=== PATIENT | female | born 1990 | race Two or more races ===

== ENCOUNTER → 2022-03-18 | Outpatient (CLI) | payer MEDICAID | END | disposition home or self-care (01) | LOC: LAB 10:17 | PROVIDERS: ATTEND Obstetrics & Gynecology | DX: Z34.80 Encounter for supervision of other normal pregnancy, unspecified trimester (principal); Z3A.00 Weeks of gestation of pregnancy not specified | CPT/HCPCS: 36415; 84702 ==

== ENCOUNTER → 2022-03-25 | Outpatient (CLI) | payer MEDICAID | END | disposition home or self-care (01) | LOC: LAB 09:48 | PROVIDERS: ATTEND Obstetrics & Gynecology | DX: O03.9 Complete or unspecified spontaneous abortion without complication (principal); Z3A.00 Weeks of gestation of pregnancy not specified | CPT/HCPCS: 36415; 84702 ==

== ENCOUNTER → 2023-06-04 | Outpatient (CLI) | payer MEDICAID ==
[2023-06-04 11:02] LABS: Basophils # (auto) 0 10 ^3/uL (0-0.2); Basophils % (auto) 0.5 % (0.0-2.0); Eosinophils # (auto) 0 10 ^3/uL (0-0.8); Eosinophils % (auto) 0.5 % (0.0-7.0); Hematocrit 39.9 % (36.0-46.0); Hemoglobin 13.6 g/dL (12.2-16.2); Lymphocytes # (auto) 2.2 10 ^3/uL (0.4-5.4); Lymphocytes % (auto) 25.5 % (10.0-50.0); Mean Corpuscular Hemoglobin 31.3 pg (28.0-32.0); Monocytes # (auto) 0.4 10 ^3/uL (0-1.3); Monocytes % (auto) 4.1 % (0.0-12.0); Neutrophils # (auto) 5.9 10 ^3/uL (1.6-8.6); Neutrophils % (auto) 69.4 % (37.0-80.0); Red Blood Cells 4.34 10^6/uL (4.0-5.20); Red Cell Distribution Width 12.5 % (11.8-14.3); White Blood Cell 8.5 10^3/uL (4.4-10.8)
[2023-06-04 11:23] LABS: Amphetamine Screen, Urine Neg (NEGATIVE)
[2023-06-04 11:25] LABS: Barbiturate Scree,Urine Neg (NEGATIVE); Benzodiazephine Screen, Urine Neg (NEGATIVE); Cocaine Screen, Urine Neg (NEGATIVE); Opiate Scree,Urine Neg (NEGATIVE); Phencyclidine Screen, Urine Neg (NEGATIVE)
[2023-06-04 11:26] LABS: Cannabinoid Screen, Urine Neg (NEGATIVE)
[2023-06-05 07:06] LABS: RPR Non Reactive (Non Reactive)
[2023-06-05 11:07] LABS: Varicella Zoster IgG Antibody 403 index (Immune >165)
[2023-06-07 04:07] LABS: QuantiFERON-TB Gold Plus Negative (Negative)
== END | disposition home or self-care (01) ==
LOC: LAB 10:15
PROVIDERS: ATTEND Obstetrics & Gynecology
DX: Z34.80 Encounter for supervision of other normal pregnancy, unspecified trimester (principal); Z36.0 Encounter for antenatal screening for chromosomal anomalies; N39.0 Urinary tract infection, site not specified; Z31.430 Encounter of female for testing for genetic disease carrier status for procreative management; Z3A.00 Weeks of gestation of pregnancy not specified
CPT/HCPCS: 36415; 80307; 83036; 84702; 85025; 86592; 86703; 86762; 86787; 86850; 86900; 86901; 87086; 87088; 87186; 87340

== ENCOUNTER → 2023-08-20 | Outpatient (CLI) | payer MEDICAID ==
[2023-08-22 09:07] LABS: Chlamydia Trachomatis, NAA Negative (Negative); Neisseria gonorrhoeae, NAA Negative (Negative)
== END | disposition home or self-care (01) ==
LOC: LAB 14:50
PROVIDERS: ATTEND Obstetrics & Gynecology
DX: N39.0 Urinary tract infection, site not specified (principal)
CPT/HCPCS: 87086

== ENCOUNTER → 2023-10-21 | Outpatient (CLI) | payer MEDICAID ==
[2023-10-21 07:48] LABS: Basophils # (auto) 0.1 10 ^3/uL (0-0.2); Basophils % (auto) 0.6 % (0.0-2.0); Eosinophils # (auto) 0.2 10 ^3/uL (0-0.8); Eosinophils % (auto) 1.4 % (0.0-7.0); Hematocrit 33.9 % (36.0-46.0); Hemoglobin 11.7 g/dL (12.2-16.2); Lymphocytes # (auto) 2.1 10 ^3/uL (0.4-5.4); Lymphocytes % (auto) 17.9 % (10.0-50.0); Mean Corpuscular Hemoglobin 31.4 pg (28.0-32.0); Mean Corpuscular Hgb Conc. 34.4 g/dL (32.0-36.0); Mean Corpuscular Volume 91.3 fL (80.0-100.0); Monocytes # (auto) 0.6 10 ^3/uL (0-1.3); Monocytes % (auto) 5.4 % (0.0-12.0); Neutrophils # (auto) 8.8 10 ^3/uL (1.6-8.6); Neutrophils % (auto) 74.7 % (37.0-80.0); Nucleated Red Blood Cells % 0.2 %; Red Blood Cells 3.72 10^6/uL (4.0-5.20); Red Cell Distribution Width 13.1 % (11.8-14.3); White Blood Cell 11.8 10^3/uL (4.4-10.8)
[2023-10-23 10:06] LABS: Chlamydia Trachomatis, NAA Negative (Negative); Neisseria gonorrhoeae, NAA Negative (Negative)
== END | disposition home or self-care (01) ==
LOC: LAB 07:26
PROVIDERS: ATTEND Obstetrics & Gynecology
DX: Z34.80 Encounter for supervision of other normal pregnancy, unspecified trimester (principal)
CPT/HCPCS: 36415; 82951; 83036; 85025

== ENCOUNTER 2023-12-16 09:38 | Observation (INO) | payer MEDICAID ==
[~2023-12-16] VITALS: Ht 162.6 cm; Wt 83.9 kg
[2023-12-16] MEDS ORDERED: PREN-96 PO (09:44)
[2023-12-16] MEDS ORDERED: TERBUTALINE SULFATE 1 MG/ML 1ML VIAL SC SCH (11:15)
== END 2023-12-16 12:10 | disposition home or self-care (01) ==
LOC: LDRP 09:38
PROVIDERS: ADMIT Obstetrics & Gynecology; ATTEND Obstetrics & Gynecology
DX: O24.419 Gestational diabetes mellitus in pregnancy, unspecified control (principal); Z3A.34 34 weeks gestation of pregnancy
CPT/HCPCS: 59025; 76818; 81002; 82948; 82962; 94760; 96372; G0378; J3105

== ENCOUNTER 2023-12-19 11:55 | Observation (INO) | payer MEDICAID ==
[~2023-12-19 11:55] MED LIST: PREN-96 PO
== END 2023-12-19 13:16 | disposition home or self-care (01) ==
LOC: LDRP 11:55
PROVIDERS: ADMIT Obstetrics & Gynecology; ATTEND Obstetrics & Gynecology
DX: O24.419 Gestational diabetes mellitus in pregnancy, unspecified control (principal); O62.9 Abnormality of forces of labor, unspecified; Z3A.35 35 weeks gestation of pregnancy
CPT/HCPCS: 76818; 82962; G0378; 59025; 81002; 82948; 94760

== ENCOUNTER 2023-12-22 09:50 | Observation (INO) | payer MEDICAID ==
[~2023-12-22] VITALS: Ht 160 cm; Wt 87.1 kg
[2023-12-22] MEDS ORDERED: NIFEdipine ER 30 MG TAB PO ONE (12:30)
[2023-12-22] MEDS ORDERED: NIFE10CA52 PO (12:53)
[2023-12-22] MEDS: TERBUTALINE SULFATE 1 MG/ML 1ML VIAL SC SCH (12:56)
[2023-12-22] MEDS: NIFEdipine 10 MG CAP PO ONE (13:04)
== END 2023-12-22 13:45 | disposition home or self-care (01) ==
LOC: UNDOADMOB 09:50 → LDRP 09:50 → UNDODISOB 13:45
PROVIDERS: ADMIT Obstetrics & Gynecology; ATTEND Obstetrics & Gynecology
DX: O24.419 Gestational diabetes mellitus in pregnancy, unspecified control (principal); O60.03 Preterm labor without delivery, third trimester; Z3A.35 35 weeks gestation of pregnancy
CPT/HCPCS: 59025; 76818; 81002; 82948; 82962; 94760; 96372; G0378; J3105; 96365

== ENCOUNTER 2023-12-25 08:06 | Observation (INO) | payer MEDICAID ==
[~2023-12-25 08:06] MED LIST changes: +NIFE10CA52 PO
== END 2023-12-25 09:15 | disposition home or self-care (01) ==
LOC: UNDOADMOB 08:06 → LDRP 08:06 → UNDODISOB 09:15
PROVIDERS: ADMIT Obstetrics & Gynecology; ATTEND Obstetrics & Gynecology
DX: O24.419 Gestational diabetes mellitus in pregnancy, unspecified control (principal); O62.9 Abnormality of forces of labor, unspecified; Z3A.35 35 weeks gestation of pregnancy
CPT/HCPCS: 59025; 76818; 81002; 82948; 82962; 94760; G0378

== ENCOUNTER 2023-12-29 08:05 | Observation (INO) | payer MEDICAID ==
[2023-12-29] MEDS ORDERED: METF-370 PO (10:02)
== END 2023-12-29 10:22 | disposition home or self-care (01) ==
LOC: LDRP 08:05 → UNDOADMOB 08:05 → LDRP 08:15 → UNDODISOB 10:22
PROVIDERS: ADMIT Obstetrics & Gynecology; ATTEND Obstetrics & Gynecology
DX: O24.419 Gestational diabetes mellitus in pregnancy, unspecified control (principal); Z3A.36 36 weeks gestation of pregnancy
CPT/HCPCS: 59025; 76818; 81002; 82948; 82962; 94760; G0378

== ENCOUNTER 2024-01-01 08:10 | Observation (INO) | payer MEDICAID ==
[~2024-01-01 08:10] MED LIST changes: +METF-370 PO
== END 2024-01-01 10:33 | disposition home or self-care (01) ==
LOC: LDRP 08:10 → UNDOADMOB 08:10 → LDRP 08:12 → UNDODISOB 10:33
PROVIDERS: ADMIT Obstetrics & Gynecology; ATTEND Obstetrics & Gynecology
DX: O24.429 Gestational diabetes mellitus in childbirth, unspecified control (principal); O69.81X0 Labor and delivery complicated by cord around neck, without compression, not applicable or unspecified; Z3A.36 36 weeks gestation of pregnancy; Z79.899 Other long term (current) drug therapy
CPT/HCPCS: 59025; 76818; 81002; 82948; 94760; G0378

== ENCOUNTER 2024-01-04 08:17 | Observation (INO) | payer MEDICAID | END 2024-01-04 09:52 | disposition home or self-care (01) | LOC: LDRP 08:17 | PROVIDERS: ADMIT Obstetrics & Gynecology; ATTEND Obstetrics & Gynecology | DX: O24.419 Gestational diabetes mellitus in pregnancy, unspecified control (principal); O69.81X0 Labor and delivery complicated by cord around neck, without compression, not applicable or unspecified; Z3A.37 37 weeks gestation of pregnancy; Z79.899 Other long term (current) drug therapy | CPT/HCPCS: 59025; 76818; 81002; 82948; 82962; 94760; G0378 ==

== ENCOUNTER 2024-01-07 08:29 | Observation (INO) | payer MEDICAID | END 2024-01-07 09:42 | disposition home or self-care (01) | LOC: UNDOADMOB 08:29 → LDRP 08:29 | PROVIDERS: ADMIT Obstetrics & Gynecology; ATTEND Obstetrics & Gynecology | DX: O24.419 Gestational diabetes mellitus in pregnancy, unspecified control (principal); Z3A.37 37 weeks gestation of pregnancy | CPT/HCPCS: 59025; 76818; 81002; 82948; 82962; 94760; G0378 ==

== ENCOUNTER 2024-01-11 11:10 | Observation (INO) | payer MEDICAID | END 2024-01-11 12:35 | disposition home or self-care (01) | LOC: LDRP 11:10 → UNDOADMOB 11:10 → LDRP 11:17 | PROVIDERS: ADMIT Obstetrics & Gynecology; ATTEND Obstetrics & Gynecology | DX: O24.419 Gestational diabetes mellitus in pregnancy, unspecified control (principal); Z3A.38 38 weeks gestation of pregnancy; Z79.899 Other long term (current) drug therapy | CPT/HCPCS: 59025; 76818; 81002; 82948; 82962; G0378 ==

== ENCOUNTER 2024-01-14 08:58 | Observation (INO) | payer MEDICAID | END 2024-01-14 11:32 | disposition home or self-care (01) | LOC: LDRP 08:58 → UNDOADMOB 08:58 → LDRP 09:34 → UNDODISOB 11:32 | PROVIDERS: ADMIT Obstetrics & Gynecology; ATTEND Obstetrics & Gynecology | DX: O24.419 Gestational diabetes mellitus in pregnancy, unspecified control (principal); Z3A.38 38 weeks gestation of pregnancy | CPT/HCPCS: 59025; 76818; 81002; 82948; 82962; 94760; G0378 ==

== ENCOUNTER 2024-01-16 07:05 | Inpatient (IN) | payer MEDICAID ==
[~2024-01-16] VITALS: Ht 160 cm; Wt 83.0 kg
[2024-01-16] MEDS ORDERED: LIDOCAINE 2%HCL (LOCAL ANESTH.) INJ 20ML MDV IJ PRN (07:30)
[2024-01-16 07:58] LABS: Basophils # (auto) 0 10 ^3/uL (0-0.2); Basophils % (auto) 0.5 % (0.0-2.0); Eosinophils # (auto) 0.1 10 ^3/uL (0-0.8); Eosinophils % (auto) 0.6 % (0.0-7.0); Hematocrit 36.1 % (36.0-46.0); Hemoglobin 12.8 g/dL (12.2-16.2); Lymphocytes # (auto) 2.4 10 ^3/uL (0.4-5.4); Lymphocytes % (auto) 27.4 % (10.0-50.0); Mean Corpuscular Hemoglobin 33.1 pg (28.0-32.0); Mean Corpuscular Hgb Conc. 35.4 g/dL (32.0-36.0); Mean Corpuscular Volume 93.6 fL (80.0-100.0); Monocytes # (auto) 0.6 10 ^3/uL (0-1.3); Monocytes % (auto) 6.5 % (0.0-12.0); Neutrophils # (auto) 5.8 10 ^3/uL (1.6-8.6); Platelet Count (auto) 219 10^3/uL (140-450); Red Blood Cells 3.86 10^6/uL (4.0-5.20); Red Cell Distribution Width 13.7 % (11.8-14.3); White Blood Cell 8.9 10^3/uL (4.4-10.8)
[2024-01-16 08:13] LABS: Albumin 4.1 g/dL (3.2-4.8); Alkaline Phosphatase 109 U/L (46-116); Anion Gap 11 (5-15); Aspartate Aminotransferase 15 U/L (13-40); Blood Urea Nitrogen 12 mg/dL (9-23); Calcium 9.2 mg/dL (8.7-10.4); Carbon Dioxide 19 mmol/L (20-31); Chloride 108 mmol/L (98-107); Glucose 85 mg/dL (74-106); Potassium 3.7 mmol/L (3.5-5.1); Sodium 138 mmol/L (136-145)
[2024-01-16 08:14] LABS: Alanine Aminotransferase < 9 U/L (7-40); Bilirubin, Total 0.4 mg/dL (0.2-1.0); Total Protein 6.9 g/dL (5.7-8.2)
[2024-01-16 08:22] LABS: INR 0.93 (0.9-1.15); Partial Thromboplastin Time 24.6 SEC (24.5-34.5); Prothrombin Time 9.9 sec (9.3-11.8)
[2024-01-16] MEDS: WITCH HAZEL-GLYCERIN PAD TOP PRN (08:57)
[2024-01-16] MEDS: DERMOPLAST 60ML BOTTLE TOP PRN (08:57)
[2024-01-16] MEDS: miSOPROStol 50 MCG per PRE-CUT 1/2 TAB PO PRN (08:57)
[2024-01-16] MEDS: PHISODERM TOP SOLN 240ML BTL TOP PRN (08:57)
[2024-01-16 09:20] LABS: Urine Bacteria FEW /hpf (None Seen); Urine Blood Negative /uL (Negative); Urine Clarity Turbid (Clear); Urine Color Light-Yellow (Yellow); Urine Protein, UAD Negative (Negative); Urine Specific Gravity 1.021 (1.001-1.035); Urine Urobilinogen Normal (Negative); Urine WBC 2 /hpf (0 - 5)
[2024-01-16 09:33] LABS: Amphetamine Screen, Urine Neg (NEGATIVE); Barbiturate Scree,Urine Neg (NEGATIVE); Benzodiazephine Screen, Urine Neg (NEGATIVE); Cannabinoid Screen, Urine Neg (NEGATIVE); Cocaine Screen, Urine Neg (NEGATIVE); Opiate Scree,Urine Neg (NEGATIVE); Phencyclidine Screen, Urine Neg (NEGATIVE)
--- NOTE | 2024-01-16 11:56 | DVHHP2 ---
OB CC & HPI Date Date of Admission: Jan 16, 2024 Patient Identification: : 6 Para: 3 EDC: Dec 24, 2023 EGA: 39wks Chief Complaints: Reason for admission: active labor, induction of labor Indication for : other (gdm) Admission Nurse Assessment Rev: No History of Present Complaints pt is admitted for iol for gdma2,no rom or vag bleedingf Past Medical History Cardiac: No pertinent Hx Pulmonary: No pertinent Hx Central Nervous System: No pertinent Hx GI: No pertinent Hx Hemotology/Oncology: No pertinent Hx Hepatobiliary: No pertinent Hx Psychiatric: No pertinent Hx Musculoskeletal: No pertinent Hx Rheumotologic: No pertinent Hx Infectious Disease: No peritnent Hx ENT: No pertinent Hx Renal/: No pertinent Hx Endocrine: No pertinent Hx Dermatology: No pertinent Hx Past Surgical History: No pertinent Hx OB History OB History Care: Good Care Ultrasounds: Normal mid trimester US Obstetrical Complications: Gestational Diabetes Medical Complications: None Allergies: Coded Allergies: NO KNOWN ALLERGIES (Unverified , 12/16/23) Home Meds Active Scripts Nifedipine (PROCARDIA CAPSULE) 10 Mg Cp, 10 MG PO Q6HR for 4 Days, #30 CAP Prov:TRUDY TUCKER CNNicolas 12/22/23 Reported Medications Metformin Hydrochloride (Metformin Hcl) 500 Mg Tab, 500 MG PO DAILY for 30 Days, MG 12/29/23 Vit W/ Ferrous Fumara ( One Daily) Daily Tab, 1 TAB PO DAILY, #90 TAB 3 Refills 12/16/23 Current Medications Current Medications Medications (Trade) Dose Ordered Sig/Christina Route PRN Reason Start Time Stop Time Status Last Admin Lactated Ringer's 1,000 ml @ 125 mls/hr Q8H IV 01/16/24 07:30 Rahul Salazar (Tucks) 1 pad PRN PRN TOP PERINEAL AREA DISCOMFORT 01/16/24 07:30 01/16/24 08:57 Sodium Lauryl Sulfate (Phisoderm) 240 ml PRN PRN TOP PERINEAL AREA DISCOMFORT 01/16/24 07:30 01/16/24 08:57 Benzocaine (Dermoplast) 1 applic PRN PRN TOP PERINEAL AREA DISCOMFORT 01/16/24 07:30 01/16/24 08:57 Misoprostol (Cytotec) 50 mcg Q4HPRN PRN PO CERVICAL RIPENING 01/16/24 07:30 01/16/24 08:57 Lidocaine HCl (Xylocaine) 20 ml ONCE PRN IJ PERINEAL AREA DISCOMFORT 01/16/24 07:30 Family & Social History Family/Social History Blood Type: Unknown Rubella: unknown RPR/VDRL: Negative GBS Status: Unknown HBsAG: Negative Review of Systems Constitutional: No symptom reported Ears, Nose, & Throat: No symptom reported Eyes: No symptom reported Pulmonary/Respiratory: No symptom reported Cardiovascular: No symptom reported Gastrointestinal: No symptom reported Genitourinary: No symptom reported Musculoskeletal: No symptom reported Skin: No symptom reported Psychiatric: No symptom reported Endocrine: No symptom reported Hemotologic/Lymphatic: No symptom reported OB Admission Exam Physical Exam HEENT: TMs Normal, Fontanelles Normal, Nasal Mucosa Normal, Eyes non-injected, Oropharynx Normal, PERRLA, Moist Membranes, EOMI Heart: Rhythm Normal Lungs: Clear Abdomen: Non tender Extremities: Normal Reflexes: Normal Cervical Dilatation: 1cm Effacement: 75% Station: -2 Membranes: Intact Heart Rate: 130's Accelerations: Accelerations Present Decelerations: No Decelerations Short Term Variability: Present Skilled Nursing Variability: Average (6-25) Contractions on Admission: >10 Minutes Apart Intensity: Mild OB Plan Plan Admitting Diagnosis: Induction of Labor for gdma2 Induction Methd: Misoprostol protocol Other Plan: informed consent obtained ROMINA BARONE DO Jan 16, 2024 11:56
[2024-01-16] MEDS: LACTATED RINGER'S 1,000 ML IV SCH (17:23)
--- NOTE | 2024-01-16 18:26 | DVHPN2 ---
Chief Complaints Patient reports: No new complaints Nursing reports: No new complaints Objective Medications Current Medications Medications (Trade) Dose Ordered Sig/Christina Route PRN Reason Start Time Stop Time Status Last Admin Benzocaine (Dermoplast) 1 applic PRN PRN TOP PERINEAL AREA DISCOMFORT 01/16/24 07:30 01/16/24 08:57 Lactated Ringer's 1,000 ml @ 125 mls/hr Q8H IV 01/16/24 07:30 01/16/24 17:23 Lidocaine HCl (Xylocaine) 20 ml ONCE PRN IJ PERINEAL AREA DISCOMFORT 01/16/24 07:30 Misoprostol (Cytotec) 50 mcg Q4HPRN PRN PO CERVICAL RIPENING 01/16/24 07:30 01/16/24 17:23 Sodium Lauryl Sulfate (Phisoderm) 240 ml PRN PRN TOP PERINEAL AREA DISCOMFORT 01/16/24 07:30 01/16/24 08:57 Witch Marie (Tucks) 1 pad PRN PRN TOP PERINEAL AREA DISCOMFORT 01/16/24 07:30 01/16/24 08:57 Others VE -1CM/50/-2 Studies Laboratory Tests 01/16/24 07:43 Test 01/16/24 07:43 Range/Units Serum Glucose 85 74-106 mg/dL Ass/Plan Assessment IOL FOR GDM Plan REC 2 CYTOTEROMINA NAVA DO Jan 16, 2024 18:26
--- NOTE | 2024-01-16 22:08 | DVHPN2 ---
CNM Labor Progress Note Date and Time Seen Date Seen: Jan 16, 2024 Time Seen: 21:15 Subjective Patient reports: No new complaints Monitoring Method Monitoring Method: External Heart Rate Heart Rate Baseline: 135 Heart Rate Variability: Moderate Presence of FHR Accelerations: Yes Presence of FHR Decelerations: No Changes in Trends of Patterns: No Are all 5 Components of the FH: Yes Contractions Contractions Frequency: Other (1-4min) Duration of Contraction: 80 Contractions Intensity: Mild Contractions Resting Tone: Relaxed Membranes Membranes: Intact Vaginal Exam Vag Exam Deferred: No Vaginal Exam Dilation: 3 Vaginal Exam Effacement: 50 Vaginal Exam Station: -2 Vaginal Exam Presentation: VTX Vaginal Exam Show: Small Medications Medication - Epidural: No Medication - Other Misoprostol Lab Results Lab Results Current Medications Medications (Trade) Dose Ordered Sig/Christina Start Time Stop Time Status Last Admin Dose Admin Lactated Ringer's 1,000 ml @ 125 mls/hr Q8H 01/16/24 07:30 01/16/24 17:23 125 MLS/HR Rahul Salazar (Tucks) 1 pad PRN PRN 01/16/24 07:30 01/16/24 08:57 1 PAD Sodium Lauryl Sulfate (Phisoderm) 240 ml PRN PRN 01/16/24 07:30 01/16/24 08:57 240 ML Benzocaine (Dermoplast) 1 applic PRN PRN 01/16/24 07:30 01/16/24 08:57 1 APPLIC Misoprostol (Cytotec) 50 mcg Q4HPRN PRN 01/16/24 07:30 01/16/24 17:23 50 MCG Lidocaine HCl (Xylocaine) 20 ml ONCE PRN 01/16/24 07:30 Oxytocin 500 ml @ 999 mls/hr Q31M ONCE 01/16/24 07:30 01/16/24 08:00 DC Oxytocin 500 ml @ 125 mls/hr Q4H ONCE 01/16/24 08:00 01/16/24 11:59 DC Laboratory Tests Test 01/16/24 18:28 01/16/24 08:30 01/16/24 07:43 Range/Units POC Glucose 89 70-106 mg/dl Urine Color Light-yellow Yellow Urine Clarity Turbid H Clear Urine pH 6.0 5.0-9.0 Urine Specific [place] 1.021 1.001-1.035 Urine Protein Negative Negative Urine Ketones Negative Negative Urine Blood Negative Negative /uL Urine Nitrite Negative Negative Urine Bilirubin Negative Negative Urine Urobilinogen Normal Negative mg/dL Urine Leukocyte Esterase Negative Negative /uL Urine RBC 1 0 - 4 /hpf Urine WBC 2 0 - 5 /hpf Urine Squamous Epithelial Cells Mod <5 /hpf Urine Calcium Oxalate Crystals Few None Seen Urine Bacteria Few H None Seen /hpf Urine Glucose Normal Normal mg/dL Urine Opiates Screen Neg NEGATIVE Urine Fentanyl Screen Neg NEGATIVE Urine Barbiturates Screen Neg NEGATIVE Urine Phencyclidine Screen Neg NEGATIVE Urine Amphetamines Screen Neg NEGATIVE Urine Benzodiazepines Screen Neg NEGATIVE Urine Cocaine Screen Neg NEGATIVE Urine Cannabinoids Screen Neg NEGATIVE White Blood Count 8.9 4.4-10.8 10^3/uL Red Blood Count 3.86 L 4.0-5.20 10^6/uL Hemoglobin 12.8 12.2-16.2 g/dL Hematocrit 36.1 36.0-46.0 % Mean Corpuscular Volume 93.6 80.0-100.0 fL Mean Corpuscular Hemoglobin 33.1 H 28.0-32.0 pg Mean Corpuscular Hemoglobin Concent 35.4 32.0-36.0 g/dL Red Cell Distribution Width 13.7 11.8-14.3 % Platelet Count 219 140-450 10^3/uL Mean Platelet Volume 8.3 6.9-10.8 fL Neutrophils (%) (Auto) 65.0 37.0-80.0 % Lymphocytes (%) (Auto) 27.4 10.0-50.0 % Monocytes (%) (Auto) 6.5 0.0-12.0 % Eosinophils (%) (Auto) 0.6 0.0-7.0 % Basophils (%) (Auto) 0.5 0.0-2.0 % Neutrophils # (Auto) 5.8 1.6-8.6 10 ^3/uL Lymphocytes # (Auto) 2.4 0.4-5.4 10 ^3/uL Monocytes # (Auto) 0.6 0-1.3 10 ^3/uL Eosinophils # (Auto) 0.1 0-0.8 10 ^3/uL Basophils # (Auto) 0 0-0.2 10 ^3/uL Nucleated Red Blood Cells 0.0 % Prothrombin Time 9.9 9.3-11.8 sec Prothrombin Time INR 0.93 0.9-1.15 Activated Partial Thromboplast Time 24.6 24.5-34.5 SEC Sodium Level 138 136-145 mmol/L Potassium Level 3.7 3.5-5.1 mmol/L Chloride Level 108 H 98-107 mmol/L Carbon Dioxide Level 19 L 20-31 mmol/L Anion Gap 11 5-15 Blood Urea Nitrogen 12 9-23 mg/dL Creatinine 0.63 0.550-1.02 mg/dL Glomerular Filtration Rate Calc 119 >90 mL/min BUN/Creatinine Ratio 19.0 10.0-20.0 Serum Glucose 85 74-106 mg/dL Calcium Level 9.2 8.7-10.4 mg/dL Total Bilirubin 0.4 0.2-1.0 mg/dL Aspartate Amino Transferase (AST) 15 13-40 U/L Alanine Aminotransferase (ALT) < 9 7-40 U/L Alkaline Phosphatase 109 46-116 U/L Total Protein 6.9 5.7-8.2 g/dL Albumin 4.1 3.2-4.8 g/dL Rapid Plasma Reagin Pending Treponema pallidum Ab (TP-PA) Pending Hepatitis C Antibody Pending Assessment Assessment IUP at 39w GDMA2 IOL Category 1 FHR tracing Plan Plan Encourage ambulation Supportive care Plan discussed with: Patient, Spouse, Daughter, Other (Parents) MALIA MAXWELL CNM Jan 16, 2024 22:08
[2024-01-16] MEDS ORDERED: miSOPROStol 100 mcg TAB SL PRN (23:00)
[2024-01-16] MEDS ORDERED: METHYLERGONOVINE MALEATE 0.2 MG/ML AMP IM PRN (23:00)
[2024-01-16] MEDS ORDERED: ONDANSETRON HCL 4 MG/2 ML VIAL IV PRN (23:00)
[2024-01-16] MEDS ORDERED: TRANEXAMIC ACID 1,000 MG in SODIUM CHL 0.9% 100 ML IV ONE (23:00)
[2024-01-16] MEDS ORDERED: CARBOPROST TROMETHAMINE 250 MCG/1ML VIAL IM PRN (23:00)
[2024-01-16] MEDS ORDERED: miSOPROStol 100 mcg TAB PR PRN (23:00)
--- NOTE | 2024-01-17 04:41 | DVHPN2 ---
CNM Labor Progress Note Date and Time Seen Date Seen: Jan 17, 2024 Time Seen: 04:20 Subjective Patient reports: Other (Contractions are stronger now) Monitoring Method Monitoring Method: External Heart Rate Heart Rate Baseline: 145 Heart Rate Variability: Moderate Presence of FHR Accelerations: Yes Changes in Trends of Patterns: No Contractions Contractions Frequency: Other (3minutes) Duration of Contraction: 80 Contractions Intensity: Moderate Contractions Resting Tone: Relaxed Membranes Membranes: Intact Vaginal Exam Vag Exam Deferred: No Vaginal Exam Dilation: 5 Vaginal Exam Effacement: 60 Vaginal Exam Station: -2 Vaginal Exam Presentation: VTX Vaginal Exam Show: Small Medications Medications - Pitocin: No Medication - Epidural: No Medication - Other Misoprostol dose #4 given at 0006 Lab Results Lab Results Current Medications Medications (Trade) Dose Ordered Sig/Christina Start Time Stop Time Status Last Admin Dose Admin Lactated Ringer's 1,000 ml @ 125 mls/hr Q8H 01/16/24 07:30 01/16/24 17:23 125 MLS/HR Rahul Salazar (Tucks) 1 pad PRN PRN 01/16/24 07:30 01/16/24 08:57 1 PAD Sodium Lauryl Sulfate (Phisoderm) 240 ml PRN PRN 01/16/24 07:30 01/16/24 08:57 240 ML Benzocaine (Dermoplast) 1 applic PRN PRN 01/16/24 07:30 01/16/24 08:57 1 APPLIC Misoprostol (Cytotec) 50 mcg Q4HPRN PRN 01/16/24 07:30 01/17/24 00:06 50 MCG Lidocaine HCl (Xylocaine) 20 ml ONCE PRN 01/16/24 07:30 Oxytocin 500 ml @ 999 mls/hr Q31M ONCE 01/16/24 07:30 01/16/24 08:00 DC Oxytocin 500 ml @ 125 mls/hr Q4H ONCE 01/16/24 08:00 01/16/24 11:59 DC Ondansetron HCl (Zofran) 4 mg Q4HP PRN 01/16/24 23:00 Carboprost Tromethamine (Hemabate) 250 mcg Q20M PRN 01/16/24 23:00 01/16/24 23:41 DC Methylergonovine Maleate (Methergine) 0.2 mg Q8HP PRN 01/16/24 23:00 01/18/24 22:59 Misoprostol (Cytotec) 200 mcg ONCE PRN 01/16/24 23:00 Misoprostol (Cytotec) 600 mcg ONCE PRN 01/16/24 23:00 Diphenoxylate HCl/ Atropine (Lomotil Tablet) 5 mg Q12HR 01/17/24 10:00 Tranexamic Acid 1000 mg/Sodium Chloride 110 ml @ 300 mls/hr ONCE ONCE 01/16/24 23:00 01/16/24 23:21 DC Laboratory Tests Test 01/17/24 03:45 01/16/24 08:30 01/16/24 07:43 Range/Units POC Glucose 78 70-106 mg/dl Urine Color Light-yellow Yellow Urine Clarity Turbid H Clear Urine pH 6.0 5.0-9.0 Urine Specific [place] 1.021 1.001-1.035 Urine Protein Negative Negative Urine Ketones Negative Negative Urine Blood Negative Negative /uL Urine Nitrite Negative Negative Urine Bilirubin Negative Negative Urine Urobilinogen Normal Negative mg/dL Urine Leukocyte Esterase Negative Negative /uL Urine RBC 1 0 - 4 /hpf Urine WBC 2 0 - 5 /hpf Urine Squamous Epithelial Cells Mod <5 /hpf Urine Calcium Oxalate Crystals Few None Seen Urine Bacteria Few H None Seen /hpf Urine Glucose Normal Normal mg/dL Urine Opiates Screen Neg NEGATIVE Urine Fentanyl Screen Neg NEGATIVE Urine Barbiturates Screen Neg NEGATIVE Urine Phencyclidine Screen Neg NEGATIVE Urine Amphetamines Screen Neg NEGATIVE Urine Benzodiazepines Screen Neg NEGATIVE Urine Cocaine Screen Neg NEGATIVE Urine Cannabinoids Screen Neg NEGATIVE White Blood Count 8.9 4.4-10.8 10^3/uL Red Blood Count 3.86 L 4.0-5.20 10^6/uL Hemoglobin 12.8 12.2-16.2 g/dL Hematocrit 36.1 36.0-46.0 % Mean Corpuscular Volume 93.6 80.0-100.0 fL Mean Corpuscular Hemoglobin 33.1 H 28.0-32.0 pg Mean Corpuscular Hemoglobin Concent 35.4 32.0-36.0 g/dL Red Cell Distribution Width 13.7 11.8-14.3 % Platelet Count 219 140-450 10^3/uL Mean Platelet Volume 8.3 6.9-10.8 fL Neutrophils (%) (Auto) 65.0 37.0-80.0 % Lymphocytes (%) (Auto) 27.4 10.0-50.0 % Monocytes (%) (Auto) 6.5 0.0-12.0 % Eosinophils (%) (Auto) 0.6 0.0-7.0 % Basophils (%) (Auto) 0.5 0.0-2.0 % Neutrophils # (Auto) 5.8 1.6-8.6 10 ^3/uL Lymphocytes # (Auto) 2.4 0.4-5.4 10 ^3/uL Monocytes # (Auto) 0.6 0-1.3 10 ^3/uL Eosinophils # (Auto) 0.1 0-0.8 10 ^3/uL Basophils # (Auto) 0 0-0.2 10 ^3/uL Nucleated Red Blood Cells 0.0 % Prothrombin Time 9.9 9.3-11.8 sec Prothrombin Time INR 0.93 0.9-1.15 Activated Partial Thromboplast Time 24.6 24.5-34.5 SEC Sodium Level 138 136-145 mmol/L Potassium Level 3.7 3.5-5.1 mmol/L Chloride Level 108 H 98-107 mmol/L Carbon Dioxide Level 19 L 20-31 mmol/L Anion Gap 11 5-15 Blood Urea Nitrogen 12 9-23 mg/dL Creatinine 0.63 0.550-1.02 mg/dL Glomerular Filtration Rate Calc 119 >90 mL/min BUN/Creatinine Ratio 19.0 10.0-20.0 Serum Glucose 85 74-106 mg/dL Calcium Level 9.2 8.7-10.4 mg/dL Total Bilirubin 0.4 0.2-1.0 mg/dL Aspartate Amino Transferase (AST) 15 13-40 U/L Alanine Aminotransferase (ALT) < 9 7-40 U/L Alkaline Phosphatase 109 46-116 U/L Total Protein 6.9 5.7-8.2 g/dL Albumin 4.1 3.2-4.8 g/dL Rapid Plasma Reagin Pending Treponema pallidum Ab (TP-PA) Pending Hepatitis C Antibody Pending Assessment Assessment IUP at 39w 1d GDMA2 IOL Category 2 FHR Tracing Plan Plan Oxytocin Augmentation Continue EFM Intrauterine resuscitation PRN Encourage frequent position change to facilitate Anticipate Plan discussed with: Patient, Spouse, Other (Parents) MALIA MAXWELL CNM Jan 17, 2024 04:41
[2024-01-17] MEDS ORDERED: TERBUTALINE SULFATE 1 MG/ML 1ML VIAL SC PRN (04:45)
[2024-01-17] MEDS ORDERED: ePHEDrine SULFATE 50 MG/ML AMP IV ONE (05:15)
[2024-01-17] MEDS ORDERED: ROPIVACAINE HCL 200 ML ONE (05:15)
[2024-01-17] MEDS ORDERED: NALOXONE HCL 0.4 MG/ML VIAL IV ONE (05:15)
[2024-01-17] MEDS ORDERED: LACTATED RINGER'S 1,000 ML IV ONE (05:15)
[2024-01-17] MEDS: ePHEDrine SULFATE 50 MG/ML AMP ONE (06:30)
[2024-01-17] MEDS: LACT. RINGERS/OXYTOCIN 20UNITS 1,000 ML IV SCH (07:27)
--- NOTE | 2024-01-17 08:50 | DVHPN2 ---
Chief Complaints Patient reports: No new complaints, Other (Contractions are stronger now) Nursing reports: No new complaints Objective Medications Current Medications Medications (Trade) Dose Ordered Sig/Christina Route PRN Reason Start Time Stop Time Status Last Admin Diphenoxylate HCl/ Atropine (Lomotil Tablet) 5 mg Q12HR PO 01/17/24 10:00 Methylergonovine Maleate (Methergine) 0.2 mg Q8HP PRN IM POST HEMORRHAGE 01/16/24 23:00 01/18/24 22:59 Misoprostol (Cytotec) 200 mcg ONCE PRN SL BLEED/HEMORRHAGE 01/16/24 23:00 Misoprostol (Cytotec) 600 mcg ONCE PRN PA BLEED/HEMORRHAGE 01/16/24 23:00 Ondansetron HCl (Zofran) 4 mg Q4HP PRN IV NAUSEA / VOMITING 01/16/24 23:00 Oxytocin 1,000 ml @ 6 ml/hr Q24H IV 01/17/24 04:45 01/17/24 07:27 Terbutaline Sulfate (Brethine Inj) 0.25 mg ONCE PRN SC Uterine tachysystole 01/17/24 04:45 Others ve-9cm/90/+1 Studies Laboratory Tests 01/16/24 07:43 Test 01/16/24 07:43 Range/Units Serum Glucose 85 74-106 mg/dL Ass/Plan Assessment IOL FOR GDM Plan supportive care ROMINA BARONE DO Jan 17, 2024 08:50
--- NOTE | 2024-01-17 09:31 | LDN2 ---
Labor and Delivery Note Date 01/17/24 Age 33 6 Para 4 AB 2 EDC 9-5 EGA 39wks Diagnosis iol for gdm Vaginal Delivery: VTX Vacuum Assisted: No Placenta: Spontaneous Sex: Male Apgars 8-9 Nuchal Cord Transected: No Amniotic Fluid: Clear Anesthesia epidural Episiotomy: No Extension: No EBL 300ml Labs Laboratory Tests 06/04/23 10:37: Hepatitis B Surface Antigen Negative, HIV (1&2) Antibody Negative, Rubella Antibody Positive Blood Bank 01/16/24 07:43: Blood Type O POSITIVE Complications none Conditions stable Comments/Significant Med Alber spece xam no cxal lac ROMINA BARONE DO Jan 17, 2024 09:30
[2024-01-17] MEDS ORDERED: ONDANSETRON ODT 4 MG TAB PO PRN (10:00)
[2024-01-17] MEDS ORDERED: DIPHENOXYLATE W/ATROPINE 2.5 MG TAB PO SCH (10:00)
[2024-01-17] MEDS ORDERED: ACETAMINOPHEN 325 MG TAB PO PRN (10:00)
[2024-01-17 11:06] LABS: RPR Non Reactive (Non Reactive)
[2024-01-17 15:30] VITALS: BP 119/70; PULSE 77; RESP 18; TEMP 97.8; O2SAT 97
[2024-01-17] MEDS: IBUPROFEN 800 MG TAB PO PRN (15:40)
[2024-01-17] MEDS: LACT. RINGERS/OXYTOCIN 20UNITS 500 ML IV ONE ×2 (17:53)
[2024-01-17 18:43] VITALS: BP 129/67; PULSE 64; RESP 18; TEMP 98.4; O2SAT 97
[2024-01-18 02:34] VITALS: BP 102/60; PULSE 68; RESP 16; TEMP 97.9; O2SAT 97
--- NOTE | 2024-01-18 05:42 | DVHPN2 ---
Progress Note Date Seen: Jan 18, 2024 Subjective S: Lochia minimal. Regular diet well tolerated. Ambulating and voiding well w/o feeling dizzy or lightheaded. Perineal pain relieved with topical analgesics and cramps with oral analgesics. Passing flatus but no BM yet. w/o problem Desires & Requests to be discharged today vital signs Vital Sign Date Time Temp Pulse Resp B/P (MAP) Pulse Ox O2 Delivery O2 Flow Rate FiO2 01/18/24 02:34 97.9 68 16 102/60 (74) 97 97.9 01/17/24 18:30 Room Air Total Intake and Output 01/17/24 01/17/24 01/18/24 15:00 23:00 07:00 Output Total 400 ml 900 ml 200 ml Balance -400 ml -900 ml -200 ml medications Current Medications Medications Dose Ordered Sig/Christina Route Start Time Stop Time Status Last Admin Dose Admin Lactated Ringer's 1,000 ml @ 125 mls/hr Q8H IV 01/16/24 07:30 01/16/24 17:23 125 MLS/HR Witch Marie 1 pad PRN PRN TOP 01/16/24 07:30 01/16/24 08:57 1 PAD Sodium Lauryl Sulfate 240 ml PRN PRN TOP 01/16/24 07:30 01/16/24 08:57 240 ML Benzocaine 1 applic PRN PRN TOP 01/16/24 07:30 01/16/24 08:57 1 APPLIC Ondansetron HCl 4 mg Q4HP PRN IV 01/16/24 23:00 Acetaminophen 650 mg Q4HP PRN PO 01/17/24 10:00 Ondansetron HCl 4 mg Q4HPRN PRN PO 01/17/24 10:00 Ibuprofen 800 mg Q8HPRN PRN PO 01/17/24 10:00 01/17/24 15:40 800 MG laboratory and microbiology Laboratory Tests 01/16/24 07:43 Test 01/16/24 07:43 Range/Units Serum Glucose 85 74-106 mg/dL Objective O: A&O x3 NAD. Afebrile, VSS Chest: heart and lung sounds normal. Breasts: Nipples intact w/o cracks or soreness Abdomen: normal BS, soft, non-tender, no rebound or guarding, fundus firm @ U- 1, Perineum:- no edema, or erythema Extremities: no edema or tenderness Lochia - minimal Assessment/Plan 33yo now ppd#1_ s/p doing well. GDMA2, HTN Blood Type: O Rh: Positive ve Breast feeding / and Formula feeding Rubella: Immune Pain control with oral medications Bowel regimen: Increase fluid intake and fiber in diet, Laxative PRN Discharge plan: May discharge home later today if condition remains stable Plan discussed with: Patient, Spouse, Other (Parents) MALIA MAXWELL CNM Jan 18, 2024 05:42
--- NOTE | 2024-01-18 05:46 | DVHDS2 ---
Obstetrics Discharge Summary Obstetrics Discharge Summary Date of Admission: Jan 16, 2024 Date of Discharge: Jan 18, 2024 Reason For Admission: Induction of Labor Procedures: NST Intrapartum Procedures: Spontaneous vaginal deliv Procedures: None Operative Complicat: None Discharge Diagnosis: Term -Delivered Discharge Information: Activity (Unrestricted. Advance as tolerated. No heavy lifting, pushing or straining. Pelvic rest x 6weeks), Diet (Routine regular diet rich in fiber, protein, iron and vitamin C with adequate fluid intake.), Medications (Ibuprofen 600mg every 6 hours as needed for pain. Continue Vitamin ), Instructions (Post operative and / self care instructions given. emergency signs and symptoms including pre-eclampsia precautions and signs of PPD reviewed with patient. Follow up with OB Provider in 1 week), Discharge to (Home) MALIA MAXWELL CNM Jan 18, 2024 05:46
[2024-01-18 07:00] VITALS: BP 122/79; PULSE 59; RESP 18; TEMP 97.6; O2SAT 98
[2024-01-18 11:00] VITALS: TEMP 36.4
[2024-01-19 10:46] LABS: Treponema Pallidum Ab LC Non Reactive (Non Reactive)
== END 2024-01-18 11:50 | disposition home or self-care (01) | DRG 560 ==
LOC: LDRP 07:05
PROVIDERS: ADMIT Obstetrics & Gynecology; ATTEND Obstetrics & Gynecology
PROC: 10E0XZZ Delivery of Products of Conception, External Approach (ICD-10-PCS; principal; 2024-01-17)
PROC: 3E0DXGC Introduction of Other Therapeutic Substance into Mouth and Pharynx, External Approach (ICD-10-PCS; 2024-01-17)
PROC: 3E0R3BZ Introduction of Anesthetic Agent into Spinal Canal, Percutaneous Approach (ICD-10-PCS; 2024-01-17)
PROC: 00HU33Z Insertion of Infusion Device into Spinal Canal, Percutaneous Approach (ICD-10-PCS; 2024-01-17)
DX: O24.425 Gestational diabetes mellitus in childbirth, controlled by oral hypoglycemic drugs (principal); Z37.0 Single live birth; O16.4 Unspecified maternal hypertension, complicating childbirth; Z3A.39 39 weeks gestation of pregnancy
CPT/HCPCS: 36415; 59200; 59409; 62282; 80053; 80307; 81001; 82948; 82962; 85025; 85610; 85730; 86592; 86780; 86803; 86850; 86900; 86901; 94760; 94762; 96360; 96361; 96365; 96366; G0378; J2590